=== PATIENT | female | born 1980 | race Caucasian/White ===

== ENCOUNTER 2024-03-21 05:22 | Day surgery (SDC) | payer OTHER, SELFPAY ==
--- NOTE | 2024-03-12 12:16 | PCM.HP.BLA ---
History and Physical Date of Admission: 03/21/24 ? HPI: The patient is a 43 year old female presenting for pre-operative visit. She is scheduled for [facility], for dyspareunia, intramural leiomyomas on 03/21/24. Procedure discussed along with risks, benefits and complications. Other alternatives discussed for management. Consent form signed? Yes. ? ? PAST MEDICAL HISTORY PAST MEDICAL HISTORY Diagnosis Date ? Endometriosis, site unspecified 10/24 ? Endometriosis ? Female infertility of unspecified origin ? ? Female infertility ? Fracture ? ? Goiter, unspecified ? ? 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 Thyroid cancer ? Nontoxic uninodular goiter 08/28/2008 ? 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 PMH - PAST MEDICAL HISTORY OF ? ? PCOS ? Vocal cord paralysis ? ? left side only ? ? PAST SURGICAL HISTORY PAST SURGICAL HISTORY Procedure Laterality Date ? CATH & SALINE/CONTRAST SONOHYSTER/HYSTEROSALPI ? ? ? DILATION & CURETTAGE DX&/THER NONOBSTETRIC ? 12/2008 ? Dilation & curettage ? INFUSE RADIOACTIVE MATERIALS ? 09/2013 ? KERATOMILEUSIS Bilateral 02/28/2019 ? LASIK/IL (Laser in situ Keratomileusis with Intralase) ? LAPAROSCOPY SURG CHOLECYSTECTOMY ? 08/05/2019 ? Cholecystectomy, lap ? PAST SURGICAL HISTORY OF ? 10/2006, 06/2009 ? LAPAROSCOPY WITH ABLATION OF ENDOMETRIAL IMPLANTS ? PAST SURGICAL HISTORY OF ? ? ? LEFT BREAST MOLE REMOVED ? PAST SURGICAL HISTORY OF ? ~2005 ? OVARIAN CYST ? THYROIDECTOMY TOTAL/COMPLETE ? 04/14/2010 ? half of thyroid, was cancerous ? THYROIDECTOMY TOTAL/COMPLETE ? 07/2013 ? ? TONSILLECTOMY PRIMARY/SECONDARY <AGE 12 ? ? ? Tonsillectomy ? ? ? CURRENT MEDICATIONS Current Outpatient Medications Medication Sig Dispense Refill ? levothyroxine (LEVOXYL) 137 mcg tablet Take 1 tablet by mouth once daily. 90 tablet 4 ? levonorgestrel (MIRENA) 20 mcg/24 hours (5 yrs) 52 mg IUD 1 Each by INTRAUTERINE route as directed. 1 Each 0 ? Calcium Carbonate-Vitamin D3 (OSCAL 500+D) 500 mg(1,250mg) -600 unit chew Take 1 tablet by mouth daily with dinner. ? ? ? [id number] (REFRESH OPTIVE MIRTHA-3, PF,) 0.5-1-0.5 % dpet Use 1 Drop in both eyes four times daily. (Patient not taking: Reported on 03/11/2024) ? ? ? No current facility-administered medications for this visit. ? ? ALLERGIES: Codeine ? PERSONAL HISTORY: SOCIAL HISTORY Social History ? Tobacco Use ? Smoking status: Former ? ? Types: Cigarettes ? ? Quit date: 06/28/2002 ? ? Years since quittin.7 ? Smokeless tobacco: Never Vaping Use ? Vaping Use: Never used Substance Use Topics ? Alcohol use: Yes ? ? Comment: Occasionally ? Drug use: No ? FAMILY HISTORY: FAMILY HISTORY FAMILY HISTORY Problem Relation Age of Onset ? Stroke Mother ? ? Thyroid Mother ? ? No Known Problems Father ? ? No Known Problems Sister ? ? Heart Attack Maternal Grandmother ? ? Emphysema Maternal Grandfather ? ? Heart Maternal Grandfather ? ? Breast Cancer Paternal Grandmother 45 ? Cancer Paternal Grandmother ? ? OVARIAN CANCER ? Diabetes Paternal Grandfather ? ? Heart Paternal Grandfather ? ? [place] ? No Known Problems Daughter ? ? No Known Problems Daughter ? ? Heart Maternal Uncle ? ? [place] ? ? REVIEW OF SYMPTOMS: GENERAL: denies fevers or chills ENDOCRINOLOGY: has not been on steroids Cardiology : denies palpitations or chest pain Respiratory: denies SOB or cough Hematology: denies history of prolonged bleeding or easy bruising or VTE Allergy: Denies history of personal or family history of allergy to anesthesia ? PHYSICAL EXAMINATION: ? VITALS: Blood pressure 122/74, pulse 87, resp. rate 16, height 5' 9.5 (1.765 m), weight 193 lb (87.5 kg), last menstrual period 10/25/2023, SpO2 98%. ? GENERAL: The patient is well nourished, well hydrated in no acute distress. , The patient is oriented to time, place, and person. NECK: Supple. No lynphadenopathy, normal thyroid, no thyromegaly. LUNGS: Clear to auscultation bilaterally. no wheezes, rhonchi or rales HEART: Regular rate and rhythm, Normal heart sounds, and No murmurs or gallops ? Pap 2020 neg w/ neg HRHPV PELVIC US 09/15/23: Uterus: -Size: 10.7 x 7.2 x 6.7 cm -Orientation: Retroverted -Endometrial echo complex: Not well seen due to the numerous leiomyomas and retroverted morphology. Intrauterine device is present, likely appropriately positioned. -Cervix: Nabothian cysts present, otherwise unremarkable. -Adenomyosis assessment: There are no sonographic findings of adenomyosis. -Fibroids: Numerous leiomyomas throughout the uterus (greater than 10). ? For example largest include posteriorly at the fundus measuring 4.1 x 3.6 x 3.5 cm. ?Anteriorly in the body measuring 2.8 x 2.4 x 2.5 cm. Right Ovary: 4.0 x 1.7 x 2.7 cm ?- Normal sonographic appearance with physiologic follicles. ?Doppler imaging showed normal arterial and venous flow throughout the ovary. Left Ovary: 3.4 x 2.2 x 3.1 cm ?- Normal sonographic appearance with physiologic follicles and a corpus luteum. ?Doppler imaging showed normal arterial and venous flow throughout the ovary. ? ? IMPRESSION: intramural uterine fibroids, dyspareunia ? PLAN: The risks/benefits/alternatives and personal involved for the planned LAVH with bilateral salpingectomy were reviewed with the patient. Her questions were answered to her satisfaction and she desires to proceed. Consent was signed. I reviewed with her postop instructions and expectations. ? ? I have reviewed and updated past medical and surgical history, medications and allergies This H&P completed in my office on 03/11/24 Assessment & Plan Assessment/Plan (1) Intramural uterine fibroid: (2) Dyspareunia:
[2024-03-13 11:01] LABS: Hematocrit 42.4 % (37-47); Mean Corpuscular Hgb 28.2 pg (27.0-32.0); Mean Corpuscular Volume 85.3 fL (81-99); Mean Platelet Vol. 10.2 fl (6.2-12.0); Platelet Count 237 K/mm3 (150-450); Red Blood Count 4.97 M/mm3 (4.2-5.4); White Blood Count 9.1 K/mm3 (4.4-11.0)
[2024-03-13 11:28] LABS: Magnesium 2.3 mg/dL (1.6-2.6)
[2024-03-21] VITALS (11 sets, daily range): BP systolic 99–122; BP diastolic 53–78; PULSE 61–98; RESP 16–18; TEMP 36.1–37; O2SAT 98–100; BMI 137085.0
[2024-03-21 05:39] LABS: Internal QC Validated? YES +Cl - CLEAR BKGD; Pregnancy, Urine Negative Negative
[2024-03-21] MEDS: Lactated Ringers 1,000 ML 40 ML IV (06:15)
[2024-03-21] MEDS: Magnesium 1 GM over 15 mins IV (06:16)
[2024-03-21 06:17] LABS: Bedside Glucose 92 mg/dL (74-106)
[2024-03-21] MEDS: Scopolamine 1mg/72hr Patch 1 PATCH TD (06:17)
[2024-03-21] MEDS: Celecoxib 200 MG Capsule 400 MG PO (06:17)
[2024-03-21] MEDS: Acetaminophen 500 MG Tablet 1000 MG PO ×2 (06:17→11:50)
[2024-03-21] MEDS: Enoxaparin 40 MG/0.4 ML Syringe SC (06:17)
[2024-03-21] MEDS: Gabapentin 600 MG Tablet PO (06:17)
[2024-03-21] MEDS: Phenazopyridine 95 MG Tablet 190 MG PO (06:17)
[2024-03-21] MEDS: Lactated Ringers @ 70 MLS/HR 70 ML IV (07:30)
--- NOTE | 2024-03-21 07:30 | HYST_PTH ---
PATIENT: LINK MARCH LOC: [facility] U#:[id number] AGE/SX: 43/F ROOM: RE03/21/[address]: Dr. Kim Bowling MD : 1980 BED: DIS: 03/21/2024 SPEC #: [id number] RECD: 03/21/24 10:50 STATUS: KETTY REYeny #: [id number] GIOVANNI: 03/21/24 07:[address]: Kim Bowling DEPT: SURGICAL PATHOLOGY RECD BY: Cecy Connelly ENTERED: 03/21/24 13:43 SP TYPE: HYSTERECT OTHR DR: No Primary Care Phys Tissues: Uterus, NOS Procedures: Surgery Specimen Level V HEADER OPERATION: ERAS, hysterectomy, LAVH, bilateral salpingectomy PRE-OP DIAGNOSIS: Intrauterine fibroids, dyspareunia TISSUE SUBMITTED: Uterus, cervix, bilateral fallopian tubes MICROSCOPIC DIAGNOSIS Uterus, cervix, bilateral fallopian tubes, hysterectomy and bilateral salpingectomy: Cervix - Chronic inflammation and squamous metaplasia. Endometrium - Consistent with exogenous hormone effects with focal cystic changes. Myometrium - Intramural, submucosal and subserosal leiomyomas (largest measuring 5.0 cm in greatest dimension). Bilateral fallopian tubes - no pathologic diagnosis. RUSS/ 03/24/24 MICROSCOPIC DESCRIPTION Slides are reviewed. GROSS DESCRIPTION Received in fixative is one container labeled with the patient's name and designated uterus. The specimen consists of a uterus with attached cervix and two detached fallopian tubes. The uterus with cervix measures 11.5 x 7.5 x 7.0 cm and weighs 207 gm. The ectocervix is unremarkable. The cervical os is oval in contour. The endocervical canal measures 4.0 cm in length and is grossly unremarkable. The triangular endometrial cavity measures 5.0x 2.0 cm. The velvety, light redd endometrium measures up to 0.2 cm in thickness. The myometrium measures 2.7 cm in average thickness and is distorted by multiple redd rubbery nodules that are submucosal, intramural and subserosal in location, the largest measuring 5.0cm in greatest dimension. Cut surface of the nodules reveal rubbery surfaces without areas of cyst formation, necrosis, or hemorrhage. The right and left fallopian tubes are similar in appearance with average lengths of 8.0cm and average diameter of 0.6cm. Natural History Collections Curator sections are submitted in 11 cassettes as follows: 1 - anterior cervix, 2 - posterior cervix, 3 & 4 - anterior uterine wall, 5 & 6 - posterior uterine wall, 7 - largest myometrial mass, 8 - second largest myometrial mass, 9- third myometrial mass, 10- one fallopian, 11- second fallopian tube / AM: 03/21/24 TC:1 CPT: 89151
[2024-03-21] MEDS: Cefazolin 2 GM in 0.9% Normal Saline (100mL Bag) 100 ML IV (07:34)
[2024-03-21] MEDS: dexAMETHasone 4 MG/ML Vial 8 MG IV (07:40)
--- NOTE | 2024-03-21 07:43 | DCINST_ITS ---
Discharge Instructions Diet Discharge Diet: Light diet - advance as tolerated Activity Discharge Activity: May Shower May resume sexual activity in: 6-8 weeks and - (Nothing in your vagina for 6 weeks. No vaginal or anal intercourse for 6-8 weeks) Lifting Restrictions: 15 lbs x 6 weeks Additional Activity Instructions:: No tub baths or anything in your vagina for 6 weeks Dressing / Incision Call your doctor if your incision/area has: Continuous Slow Oozing, Sudden Increased Bleeding, Increased Pain/ Swelling and Foul Smelling Discharge Call your doctor if you observe: Fever of 101 or Higher Cleanse incision/area with: Soap & Water and - (Your incisions have skin glue, it can get wet, leave the glue on until it falls off. ) Follow Up Care Please Follow Up With: Kim Bowling MD When: With my office in 1 and 6 weeks or as needed. [phone] Call or send a [employer] message as needed Test Results: Test results from this visit will be discussed in further detail at your follow- up appointment, if applicable. Discharge Plan Admission Primary Reason for Your Visit: Hysterectomy Attending Provider: Kim Bowling Primary Care Provider: Care Physician,Emy Primary Discharge Orders/Prescriptions Prescriptions: New ibuprofen [ibuprofen] 600 mg tablet 600 mg PO Q6H PRN (Reason: Pain) Qty: 60 1RF oxycodone 5 mg tablet 5 mg PO Q8H PRN (Reason: severe pain) 7 Days Qty: 12 0RF Continued levothyroxine 137 mcg tablet 137 mcg PO DAILY cholecalciferol (vitamin D3) [Vitamin D3] 50 mcg (2,000 unit) capsule 50 mcg PO DAILY Disposition Disposition (needs filled in before D/C Order can be placed): Home, Self Care
[2024-03-21] MEDS: Bupivacaine Mpf 0.5% 30 ML VIAL (08:05)
[2024-03-21] MEDS: Lidocaine 1%/Epi 1:200 (30ml) 30 ML AMPUL (09:14)
[2024-03-21] MEDS: Ondansetron 4 MG/2 ML Vial IV (09:40)
--- NOTE | 2024-03-21 09:56 | OP.PCM_ITS ---
Problems Associated Problem List Diagnoses (1) Dyspareunia: (2) Intramural uterine fibroid: Report of Operation Date of Procedure: 03/21/24 Pre-Operative Diagnosis: dyspareunia, intramural uterine fibroids Post-Operative Diagnosis: same Surgery/Procedure Performed:: LAVH, bilateral salpignectomy, cystoscoy Description of Surgical Findings:: enlarged uterus with muliptile fibroids, normal cervix and vagina and tubes and ovaries, normal bladder Surgeon: Kim Bowling chip crusher operator: Pretty Brewster chip crusher operator: jazlyn hunter [id number] Type of Anesthesia: General Anesthesiologist: Shawn Rock Special Medications: none Specimen's removed: uterus, cervix, bilateral fallopiant tubes Drains: none Estimated Blood Loss (mL): 250 Fluids Replaced: 1500 Description of Procedure: The patient was taken to the operating room where she was prepped and draped in the dorsal lithotomy position. Her arms were tucked to the side and padded and her legs were placed in the yellowfin stirrups. Care was taken to ensure that she was placed in a neurologically safe and neutral position. A weighted speculum was placed in the vagina and the anterior lip of the cervix was grasped with a single-tooth tenaculum. The uterus sounded to 12 centimeters. The ZUMI uterine manipulator was placed and secured. The Power catheter was placed to straight drain. Attention was turned to the abdominal portion of the case. Before skin incisions were made they were infiltrated with 0.5% Marcaine solution for local anesthetic. A 5 mm intraumbilical incision was made and while tenting the anterior abdominal wall up with towel clamps a 5 mm blade less trocar and sleeve were advanced directly into the peritoneal cavity. Peritoneal placement was confirmed with the laparoscope the pneumoperitoneum was created, and the underlying abdominal contents were intact. The patient was placed in Trendelenburg and the above findings were noted. Right and left lateral 5 mm trochars were placed under direct visualization without difficulty. The antimesenteric portion of the tube was clamped sealed and transected serially on both sides with the LigaSure device. The round ligaments were clamped sealed and transected and a window was made in the peritoneum. The utero-ovarian ligaments were then clamped, sealed and transected with the LigaSure device and the pedicles were hemostatic The bladder flap was dissected down with the LigaSure device and blunt dissection and the uterine arteries were then skeletonized. The uterine arteries were clamped, sealed and transected on both sides with the LigaSure device. At this point the pedicles were all examined and found to be hemostatic. Attention was turned to the vaginal portion of the case. 1% lidocaine with dilute epinephrine solution was used to i infiltrate the vaginal epithelium anterior and posteriorly. An anterior incision was made across the cervix and then this was carried through to of the around the posterior portion of the cervix. Blunt sharp dissection were used and turned to the anterior cul-de-sac. Sharp dissection was used to enter the posterior cul-de-sac. The posterior peritoneum was marked with an 0 Vicryl suture. The uterosacral ligaments were clamped, transected and suture-ligated. The lower portion of the cardinal ligament was clamped, transected and suture-ligated. There was some bleeding along the right sidewall and a clamp was placed around this and suture ligature was placed. Small amount of peritoneum remained and t his was clamped, transected and suture-ligated on both sides. The uterus was brought through the colpotomy incision. There was some bleeding at the left vaginal angle and an 0 Vicryl [id number] suture was placed there. Posterior cuff was then run with 2-0 Vicryl suture with taking care to attach the uterosacral ligaments to the cuff on both sides. The vaginal cuff was then closed in a horizontal fashion with interrupted 0 Vicryl [id number] sutures. Care was taken to secure the vagina to the uterosacral ligaments. The Power catheter was removed and a cystoscopy was performed. The bladder appeared normal and was intact. Both ureteral orifices were noted and both ureteral jets were seen. The cystoscope was removed and the Power catheter was placed back to straight drain. A sponge stick was placed in the vagina to help place traction against the vaginal cuff. The laparoscope was reinserted into the abdomen and the pneumoperitoneum was re- created. There was some bleeding along the left pelvic sidewall and 3 metal clips were placed to obtain hemostasis. We were above the level of the ureter which we could see peristalsing. Some hemoblast was then placed over the oozing peritoneal surfaces and excellent hemostasis was noted.. The right and left lateral ports were taken out and the sites were hemostatic. The pneumoperitoneum was released and even under low pressure there was no bleeding of any of the pedicles are vaginal cuff. The umbilical port was removed. The umbilical skin incisions were closed with Monocryl suture and skin glue by Dr. Brewster. The vaginal instruments were removed by me and a vaginal sweep was completed by me. The surgery was performed by me with assistance other than the portions dictated as above. There were no qualified residents available for this procedure. All sponge lap and needle counts were correct and the patient was transferred to the recovery room in stable condition. Dr. Brewster performed camera guidance, tissue manipulation retraction and skin closure during the procedure. Grafts/Implants Used: none Procedure Start Time: 08:02 Procedure Stop Time: 10:01 Complications none Admit VTE Documentation VTE Present on Admission: No VTE Mechan Device Prophylaxis: SCD's VTE Pharm Prophylaxis ordered?: Yes
== END 2024-03-21 12:31 | disposition home or self-care (01) ==
LOC: SDC 05:23 → AC 05:24
PROVIDERS: Anesthesiology; Referring Provider Obstetrics & Gynecology; Visit Provider Obstetrics & Gynecology
PROC: 0UT9FZZ Resection of Uterus, Via Natural or Artificial Opening With Percutaneous Endoscopic Assistance (ICD-10-PCS; CPT 58552; principal; 2024-03-21 07:05)
DX: D25.1 Intramural leiomyoma of uterus (principal); Z87.891 Personal history of nicotine dependence; N94.10 Unspecified dyspareunia; Z80.41 Family history of malignant neoplasm of ovary; N85.2 Hypertrophy of uterus; E03.9 Hypothyroidism, unspecified; Z79.899 Other long term (current) drug therapy
CPT/HCPCS: 58552; 00840; 36415; 81025; 82962; 83735; 85027; 88307; J7120; J2405; J3475